=== PATIENT | female | born 1975 | race Caucasian/White ===

== ENCOUNTER 2018-07-19 09:00 | Outpatient (CLI) | payer BC | END 2018-07-19 23:59 | disposition home or self-care (01) | LOC: RAD 09:00 | PROVIDERS: ATTEND Family Medicine | DX: R10.11 Right upper quadrant pain (principal) | CPT/HCPCS: 76700 ==

== ENCOUNTER 2021-04-08 23:53 | Emergency (ER) | payer BC, OTHER ==
[~2021-04-08] VITALS: Ht 167.6 cm; Wt 61.4 kg
--- NOTE | 2021-04-09 00:23 | NUR ---
PT REFUSING LAB DRAW - THE 5150 HOLD PROCESS HAS BEEN EXPLAINED TO THE PT - LAW ENFORCEMENT IS STILL PRESENT. SHE STILL REFUSES.
[2021-04-09 00:33] VITALS: BP 149/92
--- NOTE | 2021-04-09 00:34 | NUR ---
SHORTLY AFTER LAW ENFORCEMENT LEFT PT RAN OUT OF THE ER - [facility] WAS CONTACTED AND PER THEIR DISPTACH THE OFFICER WAS STILL IN THE AREA AND WILL LOOK FOR THE PATIENT.
== END 2021-04-09 00:44 | disposition left against medical advice (07) ==
LOC: ER 23:54
DX: Z53.21 Procedure and treatment not carried out due to patient leaving prior to being seen by health care provider (principal)